=== PATIENT | female | born 1990 | race African-American/Black ===

== ENCOUNTER 2025-06-08 06:33 | Emergency (ER) | payer MEDICAID ==
[~2025-06-08] VITALS: Ht 172.7 cm; Wt 80.5 kg
[2025-06-08 06:41] VITALS: BP 121/83; PULSE 68; RESP 16; TEMP 97.9; O2SAT 98
[2025-06-08] MEDS ORDERED: AMLO-257 PO ×2 (07:08→07:14)
[2025-06-08] MEDS ORDERED: ESCI20TA87 PO ×2 (07:08→07:14)
[2025-06-08] MEDS ORDERED: PROP20TA18 PO ×2 (07:08→07:14)
[2025-06-08] MEDS ORDERED: LURA20TA PO ×2 (07:08→07:14)
[2025-06-08] MEDS ORDERED: GABA-1181 PO ×2 (07:08→07:14)
[2025-06-08] MEDS ORDERED: QUET25TA PO ×2 (07:08→07:14)
== END 2025-06-08 07:43 | disposition home or self-care (01) ==
LOC: EMS 06:41
DX: F31.9 Bipolar disorder, unspecified (principal); F41.9 Anxiety disorder, unspecified; I10 Essential (primary) hypertension; F12.90 Cannabis use, unspecified, uncomplicated; Z90.89 Acquired absence of other organs; Z79.899 Other long term (current) drug therapy; Z87.891 Personal history of nicotine dependence; Z88.5 Allergy status to narcotic agent
CPT/HCPCS: 99283; Z7502